=== PATIENT | male | born 1950 | race African-American/Black ===

== ENCOUNTER 2016-12-20 04:05 | Inpatient (IN) | payer OTHER ==
[2016-12-20 04:42] VITALS: BP 137/86
[2016-12-20] MEDS ORDERED: Hydrocodone/APAP 10 mg/325 mg Tab PO PRN (09:34)
== END 2016-12-20 10:00 | disposition left against medical advice (07) | DRG 351 ==
LOC: MSI 04:05
PROVIDERS: ADMIT Preventive Medicine Preventive Medicine/Occupational Environmental Medicine; ATTEND Preventive Medicine Preventive Medicine/Occupational Environmental Medicine
DX: M25.552 Pain in left hip (principal); I10 Essential (primary) hypertension; M16.12 Unilateral primary osteoarthritis, left hip; G89.29 Other chronic pain; B19.20 Unspecified viral hepatitis C without hepatic coma; Z53.21 Procedure and treatment not carried out due to patient leaving prior to being seen by health care provider